=== PATIENT | female | born 1985 | race Caucasian/White ===

== ENCOUNTER 2016-10-15 15:14 | Emergency (ER) | payer SELFPAY ==
[~2016-10-15 15:14] MED LIST: ADIPEX-P37.5 M3 PO; BACTRIM DS TAB1 EAC2 PO; HYDROCODON-ACE1 EA16 PO; LORTAB 5-325 M1 EAC1; NO HOME MEDS; PERCOCET 7.5-31 EAC1 PO; SULFAMYLON SOL250 M1 EXT; SULFAMYLON60 GM EXT; TRAMADOL HCL50 M2 PO; ZOFRAN4 M2 PO
[2016-10-15] MEDS ORDERED: PHENTERMINE H37.5 M2 PO (15:32)
[2016-10-15] MEDS ORDERED: ULTRAM50 M1 PO (16:41)
[2016-10-15] MEDS ORDERED: CYCLOBENZAPRINE5 M1 PO (16:41)
== END 2016-10-15 17:04 ==
LOC: EDMED 15:14
DX: M54.5 Low back pain (principal); M25.562 Pain in left knee; W01.0XXA Fall on same level from slipping, tripping and stumbling without subsequent striking against object, initial encounter; Y92.512 Supermarket, store or market as the place of occurrence of the external cause
CPT/HCPCS: J1885